=== PATIENT | male | born 1975 | race Caucasian/White ===

== ENCOUNTER 2022-08-30 10:46 | Emergency (ER) | payer BC ==
[~2022-08-30] VITALS: Ht 163.8 cm; Wt 92.5 kg
[2022-08-30 10:51] VITALS: BP 135/86
--- NOTE | 2022-08-30 10:55 | NUR ---
PT AMBULATED TO ER BED 4
--- NOTE | 2022-08-30 11:18 | NUR ---
PT AMBULATED TO RESTROOM
--- NOTE | 2022-08-30 11:28 | NUR ---
46 YO MALE BIB SELF CO VOMITING AFTER DRINKING ALCOHOL YESTERDAY. PT STATES HE BEGAN VOMTING AT 0600 THIS MORNING, WITH "A LITTLE BUT NOT A LOT" OF BLOOD, PER PT, VOMIT LOOKED ORANGE. DENIES ABD PAIN, N/D. PT STATES HE WAS DRINKING WITH HIS FRIENDS "JUST HAVING FUN FOR A BIRTHDAY". PT STATES HE DRANK "A BUNCH OF BEER". LAST MEAL YESTERDAY AT 2200, HAS HAD PO FLUIDS TODAY. [facility]
[2022-08-30] MEDS ORDERED: ONDANSETRON 4 MG ODT PO ONE (11:30)
--- NOTE | 2022-08-30 11:40 | NUR ---
PT REFUSED MEDICATION, PT STATES HE "FEELS BETTER AND DOES NOT NEED IT".
[2022-08-30] MEDS ORDERED: ACET-1194 PO (11:59)
[2022-08-30 12:11] VITALS: BP 135/86
--- NOTE | 2022-08-30 12:11 | NUR ---
Patient discharged with v/s stable. Written and verbal after care instructions ABOUT UVULITIS given and explained. Patient alert, oriented and verbalized understanding of instructions. Ambulatory with steady gait. All questions addressed prior to discharge. ID band removed. Patient advised to follow up with PMD. Rx of TYLENOL given. Patient educated on indication of medication including possible reaction and side effects. Opportunity to ask questions provided and answered.
== END 2022-08-30 12:11 | disposition home or self-care (01) ==
LOC: MED 10:46
DX: K12.2 Cellulitis and abscess of mouth (principal)
CPT/HCPCS: 99283; Q0162